=== PATIENT | male | born 1950 | race Caucasian/White ===

== ENCOUNTER 2024-09-12 05:19 | Inpatient (IN) | payer MEDICARE, BC, SELFPAY ==
[2024-09-12] VITALS (8 sets, daily range): BP systolic 115–161; BP diastolic 69–89; PULSE 63–86; RESP 13–18; TEMP 36.2–36.8; O2SAT 92–100; BMI 18.9; BMI 19.4
--- NOTE | 2024-09-12 06:38 | MHC.EDTECH ---
Male Pure wick placed on the patient 0630
[2024-09-12 06:55] LABS: MANUAL DIFF FLAG NO
[2024-09-12 07:06] LABS: Hematocrit 40.1 % (42.0-52.0); Hemoglobin 14.7 g/dl (14.0-18.0); Imm Gran Abs Auto 0.05 X10*3/uL (0.00-0.03); Imm Gran Pct Auto 0.5 % (0.0-0.4); Lymphocytes Absolute Auto 2.1 X10*3/uL (1.2-4.9); Mean Corpuscular HGB Conc 36.7 g/dl (31.0-36.0); Mean Corpuscular Hemoglobin 32.7 pg (27.0-33.0); Mean Corpuscular Volume 89.3 fL (80.0-98.0); NRBC Abs Auto 0.000 X10*3/uL (0.0-0.012); NRBC Pct Auto 0.0 /100WBC (0.0-0.2); Platelet Count 223 X10*3/uL (160-400); Red Blood Count 4.49 X10*6/uL (4.60-5.80); White Blood Count 11.0 X10*3/uL (4.8-10.8)
[2024-09-12 07:17] LABS: Alanine Aminotransferase 8 U/L (0-40); Albumin Level 3.9 g/dL (3.5-5.0); Alkaline Phosphatase 107 U/L (39-117); Anion Gap 15 (12-20); Aspartate Amino Transferase 20 U/L (5-37); Blood Urea Nitrogen 14 mg/dL (9-16); Calcium 9.1 mg/dL (8.4-10.2); Carbon Dioxide 24 mmol/L (22-29); Chloride 88 mmol/L (96-108); Creatinine Clr Calc Pharmacy 73.7; Estimated Glomerular Filt Rate > 60; Potassium 4.1 mmol/L (3.3-5.1); Sodium 123 mmol/L (135-145); Total Protein 7.7 g/dL (6.5-8.0)
--- NOTE | 2024-09-12 07:46 | ED_ITS ---
HPI - General Adult General Chief complaint: General Medical Stated complaint: Alcohol detox Time Seen by Provider: 09/12/24 07:15 Source: patient Mode of arrival: ambulatory Limitations: no limitations History of Present Illness ED Provider: DR. Hinton HPI narrative: a 74-year-old male a history of alcoholism patient drinks every day for the last month at least, with decrease other p.o. intake, last drink was 3-4 hours ago patient feeling very anxious, tremors, seeing dots, nausea, and vomiting. Patient had history of hospitalization for DTs alcohol withdrawal, patient do not feel well overall. Declined any recent fall or head injury. Related Data Allergies Allergy/AdvReac Type Severity Reaction Status Date / Time No Known Allergies Allergy Verified 09/12/24 05:34 Review of Systems 2 Review of Systems: All other systems are reviewed and are negative Constitutional: Reports as per HPI and Reports no additional constitutional complaints Eyes: Reports as per HPI and Reports no additional eye complaints Reports system reviewed and no additional complaints, except as documented Cardiovascular: Reports as per HPI and Reports no additional cardiovascular complaints Respiratory: Reports as per HPI and Reports no additional respiratory complaints Gastrointestinal: Reports as per HPI and Reports no additional gastrointestinal complaints Genitourinary: Reports no additional female genitourinary complaints Musculoskeletal: Reports no additional musculoskeletal complaints Skin/Breast: Reports system reviewed and no additional complaints, except as docu Psychiatric: Reports no additional psychiatric complaints Endocrine: Reports no additional endocrine complaints Hematologic/Lymphatic: Reports no additional hematologic/lymphatic complaints Allergic/Immunologic: Reports no additional allergic/immunologic complaints Reports system reviewed and no additional complaints, except as documented and Reports Abnormal speech present [facility] Social History Social History Alcohol intake: current Alcohol intake frequency: 3 or more drinks per day Alcohol type: beer Smoked in Last 30 Days: No Substance Use Type: Marijuana Advance Directives: No Advance Directives Information Provided: Yes Physical Exam ED Vital Signs: Vital Signs - 24 hr 09/12/24 05:33 09/12/24 07:40 09/12/24 08:30 Temperature 97.8 F 98.1 F Pulse Rate 86 82 80 Respiratory Rate 16 17 18 Blood Pressure 115/82 161/89 H 154/86 H Pulse Oximetry 97 99 96 Oxygen Delivery Method Room Air Room Air Room Air BMI result Body Mass Index 18.9 Vital signs have been reviewed and appear to be correct. Blood pressure elevated. Heart rate normal. Respiratory rate normal. Temperature normal. Oxygen saturation normal. Appearance: Alert. Oriented X3. No acute distress. Head: Normal external exam. Normocephalic. Atraumatic. No Bragg signs noted. No raccoon eyes noted Eyes: PERRLA. EOMI. Conjunctiva and sclera normal. Eyelids normal. ENT: TM's Normal. Pharynx normal. Uvula midline. Moist mucous membranes. No trismus noted. No drooling noted. No muffled voice noted. Neck: Normal inspection. Neck supple. FROM. No adenopathy. Thyroid Normal. No meningeal signs. No neck mass noted. CVS: Normal heart rate and rhythm. Heart sound normal. No murmurs noted. Pulses normal throughout. Respiratory: No respiratory distress. Painless inspiration. Breath sounds normal. No wheezes/rales/rhonchi noted. Chest nontender. No accessory muscle usage noted or decreased air movement noted. Abdomen: Soft and nontender. Bowel sounds normal in all 4 quadrants. No distention noted. No organomegaly noted. No visible injury noted. Back: No CVA tenderness. Full range of motion noted. Skin: Skin warm and dry. Normal skin color. Normal skin turgor. No rashes/lesions/lacerations noted. Extremities: No lower extremity edema. Extremities exhibit normal range of motion. Extremities nontender. Neuro: Oriented X 3 , bilateral involuntary fine tremors, +tongue fasciculations Cranial nerve exam: II-XII are grossly intact No motor deficit. No sensory deficit. Reflexes normal. Course Reevaluation(s) Reevaluation #1: 1. chronic alcoholism, last drink was yesterday, history of DTs and multiple hospitalization for alcohol withdrawal, CIWA score currently is 16, patient was started on phenobarb. 2. Hyponatremia 123 start on normal saline. Time: 10:16 Medications Administered Discontinued Medications Generic Name Dose Route Start Last Admin Trade Name Freq PRN Reason Stop Dose Admin Diazepam 5 mg 09/12/24 07:42 09/12/24 08:22 Diazepam 10 Mg/2 Ml Cartridge IVPUSH 09/12/24 07:43 5 mg STAT STA Administration Famotidine 20 mg 09/12/24 07:42 09/12/24 08:20 Famotidine/Pf 20 Mg/2 Ml Vial IVPUSH 09/12/24 07:43 20 mg ONCE ONE Administration Lactated Ringer's 1,000 mls @ 999 mls/hr 09/12/24 07:45 09/12/24 09:40 Lr IV 09/12/24 08:45 Infused .Q1H1M EDMOND Infusion Ondansetron HCl 4 mg 09/12/24 07:42 09/12/24 08:20 Ondansetron Hcl 4 Mg/2 Ml Vial IVPUSH 09/12/24 07:43 4 mg ONCE ONE Administration Phenobarbital Sodium 312 mg 09/12/24 08:00 09/12/24 08:30 Phenobarbital Sodium 130 Mg/Ml Im Once IM 09/12/24 08:01 312 mg ONCE ONE Administration Protocol Medical Decision Making Differential Diagnosis Differential Diagnoses: The differential diagnosis associated with the presentation includes ( Alcohol withdrawal, DTs, electrolyte derangement, severe anemia.) Admission/Observation Consideration of admission/observation: Escalation of care including admission/observation considered Consult Healthcare Provider Management of the patient was discussed with: Hospitalist ( Dr. Kelly) Lab Data MDM Lab Attestation statement: I reviewed the patient's lab results. 09/12/24 06:47 09/12/24 06:47 Labs: Lab Results 09/12/24 Range/Units 06:47 WBC 11.0 H (4.8-10.8) X10*3/uL RBC 4.49 L (4.60-5.80) X10*6/uL Hgb 14.7 (14.0-18.0) g/dl Hct 40.1 L (42.0-52.0) % MCV 89.3 (80.0-98.0) fL MCH 32.7 (27.0-33.0) pg MCHC 36.7 H (31.0-36.0) g/dl RDW 13.4 (11.0-16.0) % Plt Count 223 (160-400) X10*3/uL MPV 8.9 L (9.4-12.4) fL Immature Gran % (Auto) 0.5 H (0.0-0.4) % Neut % (Auto) 73.2 H (45-73) % Lymph % (Auto) 18.8 L (20-40) % [place] % (Auto) 7.0 (2-11) % Eos % (Auto) 0.3 (0-4) % Baso % (Auto) 0.2 (0-2) % Lymph # (Auto) 2.1 (1.2-4.9) X10*3/uL [place] # (Auto) 0.8 (0.1-1.2) X10*3/uL Eos # (Auto) 0.0 (0.0-0.4) X10*3/uL Baso # (Auto) 0.0 (0.0-0.2) X10*3/uL Abs Immat Gran (auto) 0.05 H (0.00-0.03) X10*3/uL Absolute Neuts (auto) 8.0 (2.0-8.3) x10*3/uL Absolute Nucleated RBC 0.000 (0.0-0.012) X10*3/uL Nucleated RBC % (auto) 0.0 (0.0-0.2) /100WBC Sodium 123 L (135-145) mmol/L Potassium 4.1 (3.3-5.1) mmol/L Chloride 88 L (96-108) mmol/L Carbon Dioxide 24 (22-29) mmol/L Anion Gap 15 (12-20) BUN 14 (9-16) mg/dL Creatinine 0.82 (0.5-1.4) mg/dL Estim Creat Clear Calc 73.7 Estimated GFR > 60 Random Glucose 148 H (60-115) mg/dL Calcium 9.1 (8.4-10.2) mg/dL Magnesium 2.0 (1.6-2.6) mg/dL Total Bilirubin 0.8 (0.0-1.0) mg/dL AST 20 (5-37) U/L ALT 8 (0-40) U/L Alkaline Phosphatase 107 (39-117) U/L Total Protein 7.7 (6.5-8.0) g/dL Albumin 3.9 (3.5-5.0) g/dL Ethyl Alcohol 11 mg/dL Chronic Conditions Patient?s care impacted by: Other ( chronic alcoholism) Critical Care Time Critical Care Time Critical Care Time: Yes Total Critical Care Time: 60 Attestation: The patient was critically ill with a high probability of imminent or life- threatening deterioration. I spent greater than 30 minutes of discontinuous time evaluating the patient, delivering critical care at the bedside, discussing evaluating data with consultants. Critical care time does not include time spent performing separately billable procedures or teaching. Time spent performing critical care was 60 minutes. Discharge Plan Discharge Clinical Impression: Alcohol withdrawal, Acute hyponatremia Patient Disposition: Admitted As Inpatient Print Language: Turkish
[2024-09-12] MEDS: Lactated Ringers 1,000 ML 999 ML IV (08:20)
[2024-09-12] MEDS: diazePAM 10 MG/2 ML CARTRIDGE 5 MG IVPUSH (08:22)
[2024-09-12 08:26] LABS: Magnesium 2.0 mg/dL (1.6-2.6)
[2024-09-12] MEDS: PHENobarbitaL sodium 130 MG/ML IM ONCE 312 MG IM (08:30)
--- NOTE | 2024-09-12 10:48 | P.HPHOSP_ITS ---
History of Present Illness Date of Service: 09/12/24 Attending physician on admission: Jessica Kelly Chief Complaint: Alcohol Withdrawal Pt is a 74-year-old male with a PMH significant for?HTN, HLD, insulin-dependent type 2 diabetes, ascending aortic aneurysm, Lyme arthritis, alcohol use disorder with hx of alcohol withdrawal with multiple hospitalizations, active smoker with 65 pack year hx who presents to the ED seeking alcohol detox. Pt reports due to life stressors has been drinking alcohol for the past 3 months after a period. Initially started with just a few beers a day, but recently has been bingeing around 18 beers daily. The past 3 4 days has been trying to cut back, though been experiencing symptoms of withdrawal including increased agitation, shakiness, and muscle spasms. Reports long hx of heavy alcohol use and has been hospitalized for alcohol withdrawal in the past in both [place] and in [facility] among other places. Pt used to drink hard alcohol, though lately switched to beer due to alcoholic gastritis. Currently denies headache, nausea, vomiting, or increased anxiety. No reported auditory or visual hallucinations, no tactile disturbances. Reports GERD like symptoms, though no significant abdominal pain. Denies chest pain/pressure, palpitations. No SOB or difficulty breathing. Pt is an active smoker of a pack daily. In the ED pt was hypertensive up to 161/89, vitals otherwise stable and WNL. Labs were significant for mild leukocytosis of 11.0, sodium 123, chloride 88. Ethyl alcohol 11. H&H stable. Renal function WNL. Mag WNL. Hepatic function WNL. Pt was treated in the ED with IVF, Protonix, ondansetron, diazepam 5 mg IV, and started on phenobarb protocol. Pt is admitted to the hospital for treatment and further evaluation of acute alcohol withdrawal with hyponatremia. Review of Systems 2 Review of Systems: Negative except for that which is stated in the [facility] Medical History (Updated 09/12/24 @ 11:41 by ALTAGRACIA Goetz) 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 Alcohol use disorder Nicotine dependence Ascending aortic aneurysm HLD (hyperlipidemia) HTN (hypertension) Social History Alcohol intake: current Alcohol intake frequency: 3 or more drinks per day Alcohol type: beer Smoked in Last 30 Days: No Substance Use Type: Marijuana Advance Directives: No Advance Directives Information Provided: Yes Meds Allergies Allergy/AdvReac Type Severity Reaction Status Date / Time No Known Allergies Allergy Verified 09/12/24 05:34 Active Medications: Current Medications Acetaminophen (Acetaminophen 325 Mg Tablet) 650 mg PO Q6H PRN PRN Reason: Pain, Mild 1-3,fever,headache Calcium Carbonate (Calcium Carbonate 750 Mg Tab.Chew) 750 mg PO Q4H PRN PRN Reason: Heartburn Sodium Chloride (Ns) 1,000 mls @ 999 mls/hr IV .Q1H1M ONE Stop: 09/12/24 11:22 Magnesium Hydroxide (Milk Of Magnesia 30 Ml Oral.Susp) 30 ml PO DAILY PRN PRN Reason: Constipation Melatonin (Melatonin 3 Mg Tablet) 6 mg PO BEDTIME PRN PRN Reason: Insomnia Pharmacy Consult (Consult Rx Etoh Phenob Im/Po) 1 each MISCELLANE ONCE PRN; Protocol PRN Reason: Consult order Phenobarbital (Phenobarbital 15 Mg Tablet) 45 mg PO BID [facility]; Protocol Stop: 09/14/24 09:01 Phenobarbital (Phenobarbital 30 Mg Tablet) 30 mg PO BID [facility]; Protocol Stop: 09/16/24 09:01 Phenobarbital (Phenobarbital 30 Mg Tablet) 30 mg PO DAILY [facility]; Protocol Stop: 09/18/24 09:01 Phenobarbital Sodium (Phenobarbital Sodium 130 Mg/Ml Vial Im Q3hx2) 234 mg IM Q3H [facility]; Protocol Stop: 09/12/24 14:01 Sodium Chloride (0.9 % Sodium Chloride Flush 3 Ml Syringe) 3 ml IVFLUSH QSHIFT [facility] Physical Exam 2 Vital Signs and Narrative: Vital Signs: Last Vital Signs Temp 98.1 F 09/12/24 07:40 Pulse 80 09/12/24 08:30 Resp 18 09/12/24 08:30 BP 154/86 H 09/12/24 08:30 Pulse Ox 96 09/12/24 08:30 O2 Del Method Room Air 09/12/24 08:30 BMI result Body Mass Index 18.9 General: AOx3, slightly disheveled, no acute distress Resp: CTA bilaterally, diminished CVS: S1, S2, RRR GI: +BS, NT, no distention Skin: Warm, dry Neuro: Cranial nerves II-XII grossly intact bilaterally. Motor grossly intact bilaterally. No upper extremity tremors noted Extremities: No edema Psych: Appropriate affect Results Labs 09/12/24 06:47 09/12/24 06:47 Labs: Laboratory Results - last 24 hr 09/12/24 06:47 MCV 89.3 MCH 32.7 MCHC 36.7 H RDW 13.4 Plt Count 223 MPV 8.9 L Immature Gran % (Auto) 0.5 H Neut % (Auto) 73.2 H Lymph % (Auto) 18.8 L [place] % (Auto) 7.0 Eos % (Auto) 0.3 Baso % (Auto) 0.2 Lymph # (Auto) 2.1 [place] # (Auto) 0.8 Eos # (Auto) 0.0 Baso # (Auto) 0.0 Abs Immat Gran (auto) 0.05 H Absolute Neuts (auto) 8.0 Absolute Nucleated RBC 0.000 Nucleated RBC % (auto) 0.0 Anion Gap 15 Estim Creat Clear Calc 73.7 Estimated GFR > 60 Random Glucose 148 H Calcium 9.1 Magnesium 2.0 Total Bilirubin 0.8 AST 20 ALT 8 Alkaline Phosphatase 107 Total Protein 7.7 Albumin 3.9 Ethyl Alcohol 11 Assessment and Plan (1) Alcohol withdrawal: Status: Acute (2) Acute hyponatremia: Status: Acute Plan Pt is a 74-year-old male with a PMH significant for?HTN, HLD, insulin-dependent type 2 diabetes, ascending aortic aneurysm, Lyme arthritis, alcohol use disorder with hx of alcohol withdrawal with multiple hospitalizations, active smoker with 65 pack year hx who presents to the ED seeking alcohol detox. Pt is admitted to the hospital for treatment and further evaluation of acute alcohol withdrawal with hyponatremia. Acute alcohol withdrawal Pt drinking 18 beers daily, reports tremors and agitation when tries to cut back; hx of withdrawal and DT in the past Continue Phenobarb protocol Daily multivitamin, folic acid, thiamine, famotidine Follow lytes, Mag, BMP CIWA scale Addiction medicine consult Monitor on telemetry Hyponatremia Sodium 123 at time of presentation Will recheck sodium in 4h Fluid restriction 1.5L Check urine sodium, osmolality, and electrolytes serum osmolality; morning coritsol Follow sodium Monitor on telemetry HTN Reports BP has been normalized since his divorce No longer on home meds Monitor BP, consider adding antihypertensive if necessary HLD Med rec still pending Insulin-dependent type 2 diabetes Sliding-scale insulin, diabetic diet Med rec still pending Check A1c; unclear how compliant pt is with home meds Ascending aortic aneurysm Pt reports is small and stable Follow up outpatient Nicotine dependence Nicotine patch Smoking cessation counseled Full Code Attending:?Dr. Kelly DVT Prophylaxis: Lovenox Pt will require a hospitalization of at least two nights for treatment of?acute alcohol withdrawal requiring phenobarb protocol, as well hyponatremia requiring close monitoring of labs and additional workup. Quality Stroke Does the patient have a stroke diagnosis?: No VTE Prior VTE?: No VTE Risk Level:: Medical - moderate - high VTE Device Contraindication: Treatment Not Indicated VTE Drug Contraindication: N/A - Med Ordered
[2024-09-12] MEDS: PHENobarbitaL sodium 130 MG/ML VIAL IM Q3Hx2 234 MG IM ×2 (11:38→13:42)
[2024-09-12] MEDS: Nicotine 21 MG PATCH.TD24 TRANSDERMA (11:38)
[2024-09-12 11:55] LABS: Anion Gap 15 (12-20); Blood Urea Nitrogen 16 mg/dL (9-16); Calcium 9.2 mg/dL (8.4-10.2); Carbon Dioxide 26 mmol/L (22-29); Chloride 93 mmol/L (96-108); Creatinine Clr Calc Pharmacy 74.6; Estimated Glomerular Filt Rate > 60; Potassium 4.7 mmol/L (3.3-5.1); Sodium 129 mmol/L (135-145)
--- NOTE | 2024-09-12 12:14 | PHA.MEDREC ---
Addendum entered by Jannette Cai RPh 09/12/24 12:23: Reviewed by [facility] Original Note: Pharmacy Consult ? Medication Reconciliation Pharmacy partially completed med rec. Pt stated he recently just moved here from [facility] and has not been able to transfer his medications from his pharmacy in [place] to here in [place]. Pt has on hand an Insulin Glargine YFGN; confirming he injects 10 units daily of that and Insulin Lispro injecting per a sliding scale TIDAC. Pt confirmed he takes Omeprazole daily but didn't know the dose and a statin for his high cholesterol but couldn't remember the name or the dose of it at this time. When I asked pt where he was filling he was not sure at this time and stated he has no one to call and confirm them either. I confirmed what I could and will have afternoon team try to figure out pt pharmacy but it not will have Am team follow up.
[2024-09-12 12:15] LABS: Osmolality, Serum 283 mosm/kg (281-305)
[2024-09-12 12:44] LABS: Thyroid Stimulating Hormone 1.44 uIU/mL (0.32-4.0)
[2024-09-12 14:11] LABS: Appearance Urine Clear; Glucose Urine UA Negative (Negative); PH 6.5 (5.0-9.0); Specific Gravity - Urine <= 1.005 (1.005-1.025); UMIC TRIGGER UACC YES
[2024-09-12 14:15] LABS: Glucose, Whole Blood 149 mg/dL (60-115)
[2024-09-12 14:23] LABS: UACC Culture Trigger YES
[2024-09-12 17:19] LABS: Anion Gap 13 (12-20); Blood Urea Nitrogen 16 mg/dL (9-16); Calcium 8.5 mg/dL (8.4-10.2); Carbon Dioxide 24 mmol/L (22-29); Chloride 98 mmol/L (96-108); Creatinine Clr Calc Pharmacy 67.9; Estimated Glomerular Filt Rate > 60; Potassium 4.1 mmol/L (3.3-5.1); Sodium 131 mmol/L (135-145)
[2024-09-12 18:23] LABS: Glucose, Whole Blood 295 mg/dL (60-115)
[2024-09-12 20:28] LABS: Glucose, Whole Blood 218 mg/dL (60-115)
[2024-09-12] MEDS: diazePAM 10 MG/2 ML CARTRIDGE 7.5 MG IVPUSH (21:11)
[2024-09-13] VITALS (7 sets, daily range): BP systolic 133–158; BP diastolic 73–93; PULSE 51–85; RESP 16–20; TEMP 36.2–37.6; O2SAT 95–100
[2024-09-13 07:18] LABS: Anion Gap 12 (12-20); Blood Urea Nitrogen 23 mg/dL (9-16); Calcium 8.4 mg/dL (8.4-10.2); Carbon Dioxide 27 mmol/L (22-29); Chloride 98 mmol/L (96-108); Creatinine Clr Calc Pharmacy 68.9; Estimated Glomerular Filt Rate > 60; Magnesium 2.2 mg/dL (1.6-2.6); Potassium 4.1 mmol/L (3.3-5.1); Sodium 133 mmol/L (135-145)
[2024-09-13 07:43] LABS: Glucose, Whole Blood 137 mg/dL (60-115)
[2024-09-13] MEDS: Insulin Glargine,Hum.rec.anlog 100 UNIT/ML 10 ML VIAL 8 UNIT SUBCUT (07:50)
[2024-09-13] MEDS: Nicotine 21 MG PATCH.TD24 TRANSDERMA (07:51)
[2024-09-13] MEDS: 0.9 % Sodium Chloride Flush 3 ML SYRINGE IVFLUSH ×2 (07:52→19:49)
--- NOTE | 2024-09-13 09:30 | PC.NURSE ---
When entering the patients room this morning, pt instantly requesting medications on demand, pt stating the Doctor told him he an have medications whenever he wants. While scanning his medications pt began to get up from the chair, throw himself on the bed where he began to thrash out, kick his legs and state im having a seizure, i need valium . This RN assessed this situation to evaluate the seizure and the patient continued to have a full conversation with me about how I'm taking too long to give him the medication. Pt then continue to complain about the care here and how we are not managing his care appropriately. Dr. Kelly at bedside to address these concerns and issues however, pt was still not happy and threatened Dr. Kelly that he knew marshal art as he made a fist. Attempted to reassure patient and redirect but pt was still demanding/insisting on specific IV medication despite these medications given already. Charge nurse called to bedside as well to help with this situation and pt was still aggressive, verbally abusive and threatening to chacorta everyone due to malpractice . Security called at bedside to help with this situation, pt then demanding the names of everyone who took care of him so he can take everyone's licenses. Pt received another dose of medication with security at bedside. After this, the patient appeared less agitated. Once patient was less agitated he did voice that these episodes might be related to anxiety. Safety and fall precautions maintained. Call hurtado within reach. Camera in room.
[2024-09-13] MEDS: diazePAM 10 MG/2 ML CARTRIDGE 2.5 MG IVPUSH (09:59)
[2024-09-13] MEDS: diazePAM 10 MG/2 ML CARTRIDGE 5 MG IVPUSH ×2 (11:04→22:20)
--- NOTE | 2024-09-13 11:07 | MHC.CM.PN ---
CM attempted to meet with Patient at bedside but he appeared agitated and not wanting to address CM's questions. CM verbally addressed IMM with Patient and left original at bedside (copy on the chart as well). Patient appears to be homeless with no PCP and no HCP. Per MD in [place]OUN[place], Patient will benefit from both Psych and Recovery Team Consults to assist with disposition. CM has initiated and will follow for dc planning.
[2024-09-13 11:54] LABS: Glucose, Whole Blood 230 mg/dL (60-115)
--- NOTE | 2024-09-13 12:12 | PM.PSYCN ---
History of Present Illness Date of Service: 09/13/2024 Chief Complaint: Alcohol withdrawal Requesting physician: Jessica Kelly Discussed with referring provider: Yes Sources of Information: patient interviewed, chart reviewed and crisis/core team assessment reviewed HPI Narrative: Mr. Knight is a 74 year-old male with hx of alcohol use disorder, who self presented to [facility] requesting alcohol detox. He reported hx of alcohol withdrawal seizures. BAL 11. He reported binge drinking 18 beers a day. Psychiatry initially asked to meet with pt to address anxiety, but later pt became more agitated, demanding higher doses of phenobarb, threatening staff if not given higher doses of phenobarb, reporting he was having a seizure. Pt seen in the ED. He reports I'm having a hard time with the incompetence of this hospital, they don't know how to treat alcohol withdrawal. He reports his dose of phenobarb is too low. He presents as calm, no overt signs of severe alcohol withdrawal. He reports he is a [place] [employer] Vet and has used alcohol to self medicate. He reports he started using alcohol at the age of 9, given by his father who was an alcoholic. He reports he grew up seeing both parents using alcohol at a time when it was socially accepted. He reports a year ago his of 49 eyars him. He has a strained relationship with adult children. He reports alcohol use has greatly affected his relationship with family. He reports he is currently staying at [facility] but bought a house and closing is in October. When asked about depression, pt reports he does not feel depressed, that for the most part he feels upbeat. He reports in the past he has been on antidepressant (only he can remember is cymbalta) and none of them really helped. He does not discuss more in depth medications for depression as he reports he is not depressed. He reports his anxiety is concerning when he is not using alcohol. He reports today he was upset he was not getting more medications. He does report he used to be on gabapentin and it was helpful. He agrees to restart. He denies nightmares related to combat. He does report being at times explosive but at the same time he states all my problems are due to what others have done wrong. He stops for a minute and says I know that sounds wrong, but it is true. He goes on talking about his and how unfair she was for leaving him, even thought at times he acknowledges his drinking has affected all his relationships. He reports he has been on MAT including naltrexon, campral and disulfiran. He reports not helpful. He reports he prefers non traditional interventions like ayaguasca (used in [place] and some evidence of efficacy in alcohol use). He denies SI/HI. he denies hx of VH/AH. He denies hx of hypomania or jacki. He denies past psychiatric admission. he also denies hx of suicide attempts. Past Psychiatric History: Inpt: none OP: none Past medication trials- cymbalta, clonidine. 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 [place] [employer]et. 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 He reports having two adult children with whom he has a strained relationship also due to his alcohol use. He reports he currently is staying in at a motel until he buys a house. Substance History: Alcohol- first drink at age 9. He drink heavily during teens years. He reports binge drinking, usually He reports he has been on several detox, one sober house treatment. Trauma History: combat PTSD- [place] War Vet Diagnostics Vital Signs (24Hr): Vital Signs - 24 hr 09/12/24 14:04 09/12/24 18:32 09/12/24 19:40 Temperature 97.3 F 97.8 F Pulse Rate 64 71 71 Respiratory Rate 13 13 16 Blood Pressure 148/80 H 144/75 H 134/72 Pulse Oximetry 97 98 92 Oxygen Delivery Method Room Air Room Air Room Air 09/12/24 23:49 09/13/24 03:52 09/13/24 07:23 Temperature 97.1 F 97.6 F 97.4 F Pulse Rate 63 51 59 Respiratory Rate 18 18 16 Blood Pressure 122/69 145/74 H 158/77 H Pulse Oximetry 99 99 100 Oxygen Delivery Method Room Air Room Air Room Air 09/13/24 11:44 Temperature 97.9 F Pulse Rate 74 Respiratory Rate Blood Pressure 149/92 H Pulse Oximetry 98 Oxygen Delivery Method Room Air BMI result Body Mass Index 19.4 Labs 09/12/24 06:47 09/13/24 06:54 Labs: Laboratory Results - last 48 hr 09/12/24 09/12/24 09/12/24 06:47 11:14 11:17 WBC 11.0 H RBC 4.49 L Hgb 14.7 Hct 40.1 L MCV 89.3 MCH 32.7 MCHC 36.7 H RDW 13.4 Plt Count 223 MPV 8.9 L Immature Gran % (Auto) 0.5 H Neut % (Auto) 73.2 H Lymph % (Auto) 18.8 L [place] % (Auto) 7.0 Eos % (Auto) 0.3 Baso % (Auto) 0.2 Lymph # (Auto) 2.1 [place] # (Auto) 0.8 Eos # (Auto) 0.0 Baso # (Auto) 0.0 Abs Immat Gran (auto) 0.05 H Absolute Neuts (auto) 8.0 Absolute Nucleated RBC 0.000 Nucleated RBC % (auto) 0.0 Hold Purple Top Sodium 123 L 129 L Potassium 4.1 4.7 Chloride 88 L 93 L Carbon Dioxide 24 26 Anion Gap 15 15 BUN 14 16 Creatinine 0.82 0.81 Estim Creat Clear Calc 73.7 74.6 Estimated GFR > 60 > 60 POC Glucose Random Glucose 148 H 157 H Osmolality 283 Calcium 9.1 9.2 Magnesium 2.0 Total Bilirubin 0.8 AST 20 ALT 8 Alkaline Phosphatase 107 Total Protein 7.7 Albumin 3.9 TSH 1.44 Random Cortisol Urine Color Urine Appearance Urine pH Ur Specific [place] Urine Protein Urine Glucose (UA) Urine Ketones Urine Blood Urine Nitrite Ur Leukocyte Esterase Urine RBC Urine WBC Ur Squamous Epith Cells Urine Bacteria Hyaline Casts Urine Osmolality Ur Random Sodium Ur Random Potassium Ur Random Chloride Ethyl Alcohol 11 09/12/24 09/12/24 09/12/24 14:00 14:11 16:48 WBC RBC Hgb Hct MCV MCH MCHC RDW Plt Count MPV Immature Gran % (Auto) Neut % (Auto) Lymph % (Auto) Orange % (Auto) Eos % (Auto) Baso % (Auto) Lymph # (Auto) [place] # (Auto) Eos # (Auto) Baso # (Auto) Abs Immat Gran (auto) Absolute Neuts (auto) Absolute Nucleated RBC Nucleated RBC % (auto) Hold Purple Top Sodium 131 L Potassium 4.1 Chloride 98 Carbon Dioxide 24 Anion Gap 13 BUN 16 Creatinine 0.89 Estim Creat Clear Calc 67.9 Estimated GFR > 60 POC Glucose 149 H Random Glucose 200 H Osmolality Calcium 8.5 D Magnesium Total Bilirubin AST ALT Alkaline Phosphatase Total Protein Albumin TSH Random Cortisol Urine Color Yellow Urine Appearance Clear Urine pH 6.5 Ur Specific [place] <= 1.005 Urine Protein Negative Urine Glucose (UA) Negative Urine Ketones Negative Urine Blood Negative Urine Nitrite Positive H Ur Leukocyte Esterase Trace H Urine RBC 0-2 Urine WBC 0-5 Ur Squamous Epith Cells 0-2 Urine Bacteria 3+ Hyaline Casts 0-2 Urine Osmolality 97 L Ur Random Sodium < 20.0 Ur Random Potassium 13.0 Ur Random Chloride < 20.0 Ethyl Alcohol 09/12/24 09/12/24 09/13/24 18:19 19:49 06:54 WBC RBC Hgb Hct MCV MCH MCHC RDW Plt Count MPV Immature Gran % (Auto) Neut % (Auto) Lymph % (Auto) [place] % (Auto) Eos % (Auto) Baso % (Auto) Lymph # (Auto) [place] # (Auto) Eos # (Auto) Baso # (Auto) Abs Immat Gran (auto) Absolute Neuts (auto) Absolute Nucleated RBC Nucleated RBC % (auto) Hold Purple Top SEE NOTE Sodium 133 L Potassium 4.1 Chloride 98 Carbon Dioxide 27 Anion Gap 12 BUN 23 H Creatinine 0.90 Estim Creat Clear Calc 68.9 Estimated GFR > 60 POC Glucose 295 H 218 H Random Glucose 136 H Osmolality Calcium 8.4 Magnesium 2.2 Total Bilirubin AST ALT Alkaline Phosphatase Total Protein Albumin TSH Random Cortisol 17.3 Urine Color Urine Appearance Urine pH Ur Specific [place] Urine Protein Urine Glucose (UA) Urine Ketones Urine Blood Urine Nitrite Ur Leukocyte Esterase Urine RBC Urine WBC Ur Squamous Epith Cells Urine Bacteria Hyaline Casts Urine Osmolality Ur Random Sodium Ur Random Potassium Ur Random Chloride Ethyl Alcohol 09/13/24 09/13/24 07:39 11:46 WBC RBC Hgb Hct MCV MCH MCHC RDW Plt Count MPV Immature Gran % (Auto) Neut % (Auto) Lymph % (Auto) Orange % (Auto) Eos % (Auto) Baso % (Auto) Lymph # (Auto) [place] # (Auto) Eos # (Auto) Baso # (Auto) Abs Immat Gran (auto) Absolute Neuts (auto) Absolute Nucleated RBC Nucleated RBC % (auto) Hold Purple Top Sodium Potassium Chloride Carbon Dioxide Anion Gap BUN Creatinine Estim Creat Clear Calc Estimated GFR POC Glucose 137 H 230 H Random Glucose Osmolality Calcium Magnesium Total Bilirubin AST ALT Alkaline Phosphatase Total Protein Albumin TSH Random Cortisol Urine Color Urine Appearance Urine pH Ur Specific [place] Urine Protein Urine Glucose (UA) Urine Ketones Urine Blood Urine Nitrite Ur Leukocyte Esterase Urine RBC Urine WBC Ur Squamous Epith Cells Urine Bacteria Hyaline Casts Urine Osmolality Ur Random Sodium Ur Random Potassium Ur Random Chloride Ethyl Alcohol Mental Status Exam Mental Status Exam Narrative: Appearance: wearing hospital gown, edentulous, nails unkempt and dirt under them, in NAD Behavior: cooperative Psychomotor: pill rolling tremors, more pronounced on right hand. Speech: clear, normal rate/rhythm/volume, talkative, but not pressured, spontaneous TP: tangential, at times circumstantial TC: wanting help with self medication, Mood: Affect: SI: denies HI: denies VH/AH: none Delusions: none Insight/judgment: very poor x 2. Memory/cog: alert, oriented x 3. no formal assessment of memory/cog. Medications Medications Current Medications Acetaminophen (Acetaminophen 325 Mg Tablet) 650 mg PO Q6H PRN PRN Reason: Pain, Mild 1-3,fever,headache Last Admin: 09/13/24 07:54 Dose: 650 mg Calcium Carbonate (Calcium Carbonate 750 Mg Tab.Chew) 750 mg PO Q4H PRN PRN Reason: Heartburn Dextrose (Dextrose 50 % 25 Gm/50 Ml Syringe) 25 gm IVPUSH Q15M PRN; Protocol PRN Reason: per Hypoglycemia Standing Ord. Enoxaparin Sodium (Enoxaparin Sodium 40 Mg/0.4 Ml Syringe) 40 mg SUBCUT Q24H [facility] Last Admin: 09/13/24 11:57 Dose: 40 mg Glucose (Glucose Gel 15 Gm Gel..Gram.) 15 gm PO Q15M PRN; Protocol PRN Reason: per Hypoglycemia Standing Ord. Haloperidol Lactate (Haloperidol Lactate 5 Mg/Ml Vial) 1 mg IM Q4H PRN PRN Reason: agitation Dextrose (D5w) 1,000 mls @ 75 mls/hr IVCONT .[id number] [facility] Last Admin: 09/13/24 07:52 Dose: 75 mls/hr Insulin Glargine (Insulin Glargine,Hum.Rec.Anlog 100 Unit/Ml 10 Ml Vial) 8 unit SUBCUT DAILY [facility] Last Admin: 09/13/24 07:50 Dose: 8 unit Insulin Human Lispro (Insulin Lispro 100 Unit/Ml 3 Ml Vial) 0 unit SUBCUT QIDACHS [facility]; Protocol Last Admin: 09/13/24 11:57 Dose: 4 unit Magnesium Hydroxide (Milk Of Magnesia 30 Ml Oral.Susp) 30 ml PO DAILY PRN PRN Reason: Constipation Melatonin (Melatonin 3 Mg Tablet) 6 mg PO BEDTIME PRN PRN Reason: Insomnia Last Admin: 09/12/24 20:17 Dose: 6 mg Nicotine (Nicotine 21 Mg Patch.Td24) 21 mg TRANSDERMA DAILY [facility] Last Admin: 09/13/24 07:51 Dose: 21 mg Pantoprazole Sodium (Pantoprazole Sodium 40 Mg/10 Ml Vial) 40 mg IVPUSH DAILY@629 [facility] Last Admin: 09/13/24 05:31 Dose: 40 mg Pharmacy Consult (Consult Rx Etoh Phenob Im/Po) 1 each MISCELLANE ONCE PRN; Protocol PRN Reason: Consult order Phenobarbital (Phenobarbital 15 Mg Tablet) 45 mg PO BID [facility]; Protocol Stop: 09/14/24 09:01 Last Admin: 09/13/24 07:51 Dose: 45 mg Phenobarbital (Phenobarbital 30 Mg Tablet) 30 mg PO BID [facility]; Protocol Stop: 09/16/24 09:01 Phenobarbital (Phenobarbital 30 Mg Tablet) 30 mg PO DAILY [facility]; Protocol Stop: 09/18/24 09:01 Sodium Chloride (0.9 % Sodium Chloride Flush 3 Ml Syringe) 3 ml IVFLUSH QSHIFT [facility] Last Admin: 09/13/24 07:52 Dose: 3 ml Allergies Allergies Allergy/AdvReac Type Severity Reaction Status Date / Time No Known Allergies Allergy Verified 09/12/24 05:34 Assessment & Plan Assessment & Plan (1) Alcohol use disorder, severe, dependence: Status: Acute Code(s): F10.20 - Alcohol dependence, uncomplicated (2) 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 Knight is a 74 Total time managing care of this patient today __45__ minutes.
--- NOTE | 2024-09-13 12:54 | P.PNIM_ITS ---
Subjective Subjective Date of Service: 09/13/24 Interval History: alcohol withdrawals Review of Systems patient is upset -says has 2 seizure last night-d/w staff no seizure reported overnight we have given phenobarbital this morning now saying he wants diazepam which was given po and iv diazepam on request -he was comfortable and thanked me ,then few minutes later staff called -patient is very agitated and aggressive,insisiting for more medications . 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 in addition patient was aggressive towards staff also ,security called also. we politely requested to help him-but keep shifting from one thought to another as well as keep insisting for iv medications even though no seizure noted ,has only mild tremers ,asking for haloperidol now instead of diazepam. in addition checked with night staff-no seizure overnight. Physical Exam 2 Vital Signs: Vital Signs: Last Vital Signs Temp 97.9 F 09/13/24 11:44 Pulse 74 09/13/24 11:44 Resp 16 09/13/24 07:23 BP 149/92 H 09/13/24 11:44 Pulse Ox 98 09/13/24 11:44 O2 Del Method Room Air 09/13/24 11:44 BMI result Body Mass Index 19.4 Appearance: awake, has flight of ideas cvs: rrr, [id number]. res: clear to auscultation ,no rhonchii or wheezing abd: no rebound or guarding ,nt, bs present. ext pulses present , no cyanosis. neuro: moves all ext psych; agitated , has flight of ideas Objective Data Active Medications Acetaminophen (Acetaminophen 325 Mg Tablet) 650 mg PO Q6H PRN PRN Reason: Pain, Mild 1-3,fever,headache Last Admin: 09/13/24 07:54 Dose: 650 mg Documented By: JOE Calcium Carbonate (Calcium Carbonate 750 Mg Tab.Chew) 750 mg PO Q4H PRN PRN Reason: Heartburn Dextrose (Dextrose 50 % 25 Gm/50 Ml Syringe) 25 gm IVPUSH Q15M PRN; Protocol PRN Reason: per Hypoglycemia Standing Ord. Enoxaparin Sodium (Enoxaparin Sodium 40 Mg/0.4 Ml Syringe) 40 mg SUBCUT Q24H [facility] Last Admin: 09/13/24 11:57 Dose: 40 mg Documented By: JOE Glucose (Glucose Gel 15 Gm Gel..Gram.) 15 gm PO Q15M PRN; Protocol PRN Reason: per Hypoglycemia Standing Ord. Haloperidol Lactate (Haloperidol Lactate 5 Mg/Ml Vial) 1 mg IM Q4H PRN PRN Reason: agitation Dextrose (D5w) 1,000 mls @ 75 mls/hr IVCONT .[id number] [facility] Last Admin: 09/13/24 07:52 Dose: 75 mls/hr Documented By: JOE Insulin Glargine (Insulin Glargine,Hum.Rec.Anlog 100 Unit/Ml 10 Ml Vial) 8 unit SUBCUT DAILY [facility] Last Admin: 09/13/24 07:50 Dose: 8 unit Documented By: JOE Insulin Human Lispro (Insulin Lispro 100 Unit/Ml 3 Ml Vial) 0 unit SUBCUT QIDACHS [facility]; Protocol Last Admin: 09/13/24 11:57 Dose: 4 unit Documented By: JOE Magnesium Hydroxide (Milk Of Magnesia 30 Ml Oral.Susp) 30 ml PO DAILY PRN PRN Reason: Constipation Melatonin (Melatonin 3 Mg Tablet) 6 mg PO BEDTIME PRN PRN Reason: Insomnia Last Admin: 09/12/24 20:17 Dose: 6 mg Documented By: BELKIS Nicotine (Nicotine 21 Mg Patch.Td24) 21 mg TRANSDERMA DAILY [facility] Last Admin: 09/13/24 07:51 Dose: 21 mg Documented By: JOE Pantoprazole Sodium (Pantoprazole Sodium 40 Mg/10 Ml Vial) 40 mg IVPUSH DAILY@0630 [facility] Last Admin: 09/13/24 05:31 Dose: 40 mg Documented By: BELKIS Pharmacy Consult (Consult Rx Etoh Phenob Im/Po) 1 each MISCELLANE ONCE PRN; Protocol PRN Reason: Consult order Phenobarbital (Phenobarbital 15 Mg Tablet) 45 mg PO BID [facility]; Protocol Stop: 09/14/24 09:01 Last Admin: 09/13/24 07:51 Dose: 45 mg Documented By: HO.ARTING Phenobarbital (Phenobarbital 30 Mg Tablet) 30 mg PO BID [facility]; Protocol Stop: 09/16/24 09:01 Phenobarbital (Phenobarbital 30 Mg Tablet) 30 mg PO DAILY [facility]; Protocol Stop: 09/18/24 09:01 Sodium Chloride (0.9 % Sodium Chloride Flush 3 Ml Syringe) [facility] Last Admin: 09/13/24 07:52 Dose: 3 ml Documented By: JOE Labs 09/12/24 06:47 09/13/24 14:28 Labs: Laboratory Results - last 24 hr 09/12/24 09/12/24 09/12/24 14:00 14:11 16:48 Hold Purple Top Anion Gap 13 Estim Creat Clear Calc 67.9 Estimated GFR > 60 POC Glucose 149 H Random Glucose 200 H Calcium 8.5 D Magnesium Random Cortisol Urine Color Yellow Urine Appearance Clear Urine pH 6.5 Ur Specific [place] <= 1.005 Urine Protein Negative Urine Glucose (UA) Negative Urine Ketones Negative Urine Blood Negative Urine Nitrite Positive H Ur Leukocyte Esterase Trace H Urine RBC 0-2 Urine WBC 0-5 Ur Squamous Epith Cells 0-2 Urine Bacteria 3+ Hyaline Casts 0-2 Urine Osmolality 97 L Ur Random Sodium < 20.0 Ur Random Potassium 13.0 Ur Random Chloride < 20.0 09/12/24 09/12/24 09/13/24 18:19 19:49 06:54 Hold Purple Top SEE NOTE Anion Gap 12 Estim Creat Clear Calc 68.9 Estimated GFR > 60 POC Glucose 295 H 218 H Random Glucose 136 H Calcium 8.4 Magnesium 2.2 Random Cortisol 17.3 Urine Color Urine Appearance Urine pH Ur Specific [place] Urine Protein Urine Glucose (UA) Urine Ketones Urine Blood Urine Nitrite Ur Leukocyte Esterase Urine RBC Urine WBC Ur Squamous Epith Cells Urine Bacteria Hyaline Casts Urine Osmolality Ur Random Sodium Ur Random Potassium Ur Random Chloride 09/13/24 09/13/24 07:39 11:46 Hold Purple Top Anion Gap Estim Creat Clear Calc Estimated GFR POC Glucose 137 H 230 H Random Glucose Calcium Magnesium Random Cortisol Urine Color Urine Appearance Urine pH Ur Specific [place] Urine Protein Urine Glucose (UA) Urine Ketones Urine Blood Urine Nitrite Ur Leukocyte Esterase Urine RBC Urine WBC Ur Squamous Epith Cells Urine Bacteria Hyaline Casts Urine Osmolality Ur Random Sodium Ur Random Potassium Ur Random Chloride Microbiology Microbiology Results: Microbiology 09/12/24 Unknown Urine Culture - Preliminary Urine clean catch - Clean Catch Midstream Culture in progress. Assessment and Plan (1) Alcohol withdrawal: Status: Acute Plan 74-year-old male with a PMH significant for?HTN, HLD, insulin-dependent type 2 diabetes, ascending aortic aneurysm, Lyme arthritis, alcohol use disorder with hx of alcohol withdrawal with multiple hospitalizations, active smoker with 65 pack year hx who presents to the ED seeking alcohol detox. Alcohol withdrawals started on pheno given extra diazepam no seizures on eval or any overnight . last ciwa was 3 insist he is having seizure this morning-but no clear seizure only mild tremers as per staff-no overnight seizure also plan: continue phenobarbital , diazepam changed to haloperidol (patient inssist) neurochecks ,neuro,additction eval possible severe anxiety vs mood dis: conitnue above,added psych Hyponatremia: imrpoving Check urine sodium 97,serum osmolality: 283, and electrolytes serum sodium<20 tsh and cortisol normal improving goal is 6-8 meq/24hr next bmp will be this evening, will add nephrology eval HTN bp flactuating Monitor BP, consider adding antihypertensive if necessary HLD will check lipid levels in am ,may need statin Insulin-dependent type 2 diabetes Check A1c;6.1 unclear how compliant pt is with home meds Sliding-scale insulin, diabetic diet Ascending aortic aneurysm Pt reports is small and stable Follow up outpatient Nicotine dependence Nicotine patch, asked for nicotein gum which is added . ongoing need : alcohol withdrawals and ?mood dis: need ciwa moniter ,moniter renal function/electrolytes Quality Stroke Does the patient have a stroke diagnosis?: No VTE Prior VTE?: No VTE Risk Level:: Medical - moderate - high VTE Device Contraindication: Treatment Not Indicated VTE Drug Contraindication: N/A - Med Ordered
--- NOTE | 2024-09-13 13:05 | PC.NURSE ---
Dr asked this charge entry to talk to patient this morning as pt seems upset with care. I went into the room to talk with patient. Patient states he is not getting cared for adequately and the nurses are being so slow as the Dr told him he could get his meds immediately when I ask for them. I attempted to discuss plan of care with patient and that I would look into the Dr orders, pt very upset stating hes sick of people saying that and ignoring him. Discussed with primary RN who states he had been yelling at her this morning getting very frustrated with staff stating hes having seizures. I asked him to explain why he thought he was having seizures and what happened. 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 I discussed the possibility of this being anxiety or a panic attack. pt first agreed may be issue but then called them again seizures we are ignoring. I looked at pt MAY and pt had prn Valium 5mg ordered. Came back to the room, pt stated I was too slow, as attempting to have discussion on process of waiting for an order, waiting for verification that it is not always immediate. Pt very agitated stating he will be sueing us all, wants our names, will be hearing from a team of his laywers etc. As I was opening flushes for med administration pt stating I was playing around and continued to yell at this RN. I did not feel comfortable with his level of agitation so called security to room. This RN and security to room to discuss with patient. Valium then admined IV per MAY. Pt still upset stating this RN was incompetent and slow. and how the unit is terribly run. I offered community health representative to come to room after his meeting, patient upset rolling eyes. Security and RN able to deescalate patient after about 15min of discussing the same complaints talkign in circles pt unacceptance of any resolution (wanting haldol and more meds on demand ,nurses being faster) Told pt I would check in with the DR about plan. Plan unchanged. Per MD neuro and psych consults placed. Security and community health representative to room if needed again.
--- NOTE | 2024-09-13 13:25 | HO.ADDICTCON ---
History of Present Illness Date of Service: 09/13/2024 Chief Complaint: Alcohol withdrawal Reason for Consult: AUD Sources of Information: chart reviewed HPI Narrative: Patient is a 74 year old male who presented to [facility] [place] requesting assistance with alcohol withdrawal. While in ED, CIWA score was noted to be 16 and Na 123, subsequently patient was medically admitted. Patient was initiated on phenobarbital protocol. This morning CIWA scores 5. No reports of n/v slight tremor reported. PRN doses of diazepam had been ordered due to increasing agitation -patient reportedly upset as he felt he had a seizure and it was not being addressed There is no clinical evidence to support this. T/W observed patient verbalizing displeasure with the care he was being given here and feeling things were taking too long. Patient seen later in the afternoon in room 453. He is awake, alert, writing in a notebook when t/w arrived in his room. 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 Did not inquire any further regarding this statement. Patient answering questions, but requiring encouragement to actually answer the question as he was insistent on providing history and context, which goes back many, many years. He reports having his first drink at 9 years old with his father. He states he has had a problematic relationship with alcohol for many years, however dose report long periods of abstaining --4 years being the longest. He states that he was living in [place] when his him and he suffered a stroke. This led to him moving to [place] with one of his children, until 2 months ago when he came to [place] and has been living in a [address]. The timeline of the stroke, divorce, etc. is unclear. He states he started drinking 2 months ago in the motel and finally decided he needed to stop so he presented to ED Discussed treatment history States he has been to various levels of care multiple time Has trialled all medications for AUD, and states all were ineffective Has been engaged with AA Currently withdrawal sx well managed, still has mild visible tremor Patient agreeable that withdrawal sx are well managed--however he quickly states that he experienced 2 seizures last evening Medical Evaluation Reviewed: Yes Review of Systems Constitutional: Reports as per HPI Diagnostics Vital Signs (24Hr): Vital Signs - 24 hr 09/12/24 14:04 09/12/24 18:32 09/12/24 19:40 Temperature 97.3 F 97.8 F Pulse Rate 64 71 71 Respiratory Rate 13 13 16 Blood Pressure 148/80 H 144/75 H 134/72 Pulse Oximetry 97 98 92 Oxygen Delivery Method Room Air Room Air Room Air 09/12/24 23:49 09/13/24 03:52 09/13/24 07:23 Temperature 97.1 F 97.6 F 97.4 F Pulse Rate 63 51 59 Respiratory Rate 18 18 16 Blood Pressure 122/69 145/74 H 158/77 H Pulse Oximetry 99 99 100 Oxygen Delivery Method Room Air Room Air Room Air 09/13/24 11:44 Temperature 97.9 F Pulse Rate 74 Respiratory Rate Blood Pressure 149/92 H Pulse Oximetry 98 Oxygen Delivery Method Room Air BMI result Body Mass Index 19.4 Labs 09/12/24 06:47 09/13/24 14:28 Labs: Laboratory Results - last 48 hr 09/12/24 09/12/24 09/12/24 06:47 11:14 11:17 WBC 11.0 H RBC 4.49 L Hgb 14.7 Hct 40.1 L MCV 89.3 MCH 32.7 MCHC 36.7 H RDW 13.4 Plt Count 223 MPV 8.9 L Immature Gran % (Auto) 0.5 H Neut % (Auto) 73.2 H Lymph % (Auto) 18.8 L [place] % (Auto) 7.0 Eos % (Auto) 0.3 Baso % (Auto) 0.2 Lymph # (Auto) 2.1 [place] # (Auto) 0.8 Eos # (Auto) 0.0 Baso # (Auto) 0.0 Abs Immat Gran (auto) 0.05 H Absolute Neuts (auto) 8.0 Absolute Nucleated RBC 0.000 Nucleated RBC % (auto) 0.0 Hold Purple Top Sodium 123 L 129 L Potassium 4.1 4.7 Chloride 88 L 93 L Carbon Dioxide 24 26 Anion Gap 15 15 BUN 14 16 Creatinine 0.82 0.81 Estim Creat Clear Calc 73.7 74.6 Estimated GFR > 60 > 60 POC Glucose Random Glucose 148 H 157 H Osmolality 283 Calcium 9.1 9.2 Magnesium 2.0 Total Bilirubin 0.8 AST 20 ALT 8 Alkaline Phosphatase 107 Total Protein 7.7 Albumin 3.9 TSH 1.44 Random Cortisol Urine Color Urine Appearance Urine pH Ur Specific [place] Urine Protein Urine Glucose (UA) Urine Ketones Urine Blood Urine Nitrite Ur Leukocyte Esterase Urine RBC Urine WBC Ur Squamous Epith Cells Urine Bacteria Hyaline Casts Urine Osmolality Ur Random Sodium Ur Random Potassium Ur Random Chloride Ethyl Alcohol 11 09/12/24 09/12/24 09/12/24 14:00 14:11 16:48 WBC RBC Hgb Hct MCV MCH MCHC RDW Plt Count MPV Immature Gran % (Auto) Neut % (Auto) Lymph % (Auto) [place] % (Auto) Eos % (Auto) Baso % (Auto) Lymph # (Auto) [place] # (Auto) Eos # (Auto) Baso # (Auto) Abs Immat Gran (auto) Absolute Neuts (auto) Absolute Nucleated RBC Nucleated RBC % (auto) Hold Purple Top Sodium 131 L Potassium 4.1 Chloride 98 Carbon Dioxide 24 Anion Gap 13 BUN 16 Creatinine 0.89 Estim Creat Clear Calc 67.9 Estimated GFR > 60 POC Glucose 149 H Random Glucose 200 H Osmolality Calcium 8.5 D Magnesium Total Bilirubin AST ALT Alkaline Phosphatase Total Protein Albumin TSH Random Cortisol Urine Color Yellow Urine Appearance Clear Urine pH 6.5 Ur Specific [place] <= 1.005 Urine Protein Negative Urine Glucose (UA) Negative Urine Ketones Negative Urine Blood Negative Urine Nitrite Positive H Ur Leukocyte Esterase Trace H Urine RBC 0-2 Urine WBC 0-5 Ur Squamous Epith Cells 0-2 Urine Bacteria 3+ Hyaline Casts 0-2 Urine Osmolality 97 L Ur Random Sodium < 20.0 Ur Random Potassium 13.0 Ur Random Chloride < 20.0 Ethyl Alcohol 09/12/24 09/12/24 09/13/24 18:19 19:49 06:54 WBC RBC Hgb Hct MCV MCH MCHC RDW Plt Count MPV Immature Gran % (Auto) Neut % (Auto) Lymph % (Auto) [place] % (Auto) Eos % (Auto) Baso % (Auto) Lymph # (Auto) [place] # (Auto) Eos # (Auto) Baso # (Auto) Abs Immat Gran (auto) Absolute Neuts (auto) Absolute Nucleated RBC Nucleated RBC % (auto) Hold Purple Top SEE NOTE Sodium 133 L Potassium 4.1 Chloride 98 Carbon Dioxide 27 Anion Gap 12 BUN 23 H Creatinine 0.90 Estim Creat Clear Calc 68.9 Estimated GFR > 60 POC Glucose 295 H 218 H Random Glucose 136 H Osmolality Calcium 8.4 Magnesium 2.2 Total Bilirubin AST ALT Alkaline Phosphatase Total Protein Albumin TSH Random Cortisol 17.3 Urine Color Urine Appearance Urine pH Ur Specific [place] Urine Protein Urine Glucose (UA) Urine Ketones Urine Blood Urine Nitrite Ur Leukocyte Esterase Urine RBC Urine WBC Ur Squamous Epith Cells Urine Bacteria Hyaline Casts Urine Osmolality Ur Random Sodium Ur Random Potassium Ur Random Chloride Ethyl Alcohol 09/13/24 09/13/24 07:39 11:46 WBC RBC Hgb Hct MCV MCH MCHC RDW Plt Count MPV Immature Gran % (Auto) Neut % (Auto) Lymph % (Auto) [place] % (Auto) Eos % (Auto) Baso % (Auto) Lymph # (Auto) [place] # (Auto) Eos # (Auto) Baso # (Auto) Abs Immat Gran (auto) Absolute Neuts (auto) Absolute Nucleated RBC Nucleated RBC % (auto) Hold Purple Top Sodium Potassium Chloride Carbon Dioxide Anion Gap BUN Creatinine Estim Creat Clear Calc Estimated GFR POC Glucose 137 H 230 H Random Glucose Osmolality Calcium Magnesium Total Bilirubin AST ALT Alkaline Phosphatase Total Protein Albumin TSH Random Cortisol Urine Color Urine Appearance Urine pH Ur Specific [place] Urine Protein Urine Glucose (UA) Urine Ketones Urine Blood Urine Nitrite Ur Leukocyte Esterase Urine RBC Urine WBC Ur Squamous Epith Cells Urine Bacteria Hyaline Casts Urine Osmolality Ur Random Sodium Ur Random Potassium Ur Random Chloride Ethyl Alcohol Mental Status Exam Mental Status Exam Level of Consciousness: Awake and Alert Patient Behavior: Talkative Affect Description: Expansive Speech Pattern: Clear and Excessive Hallucinations: None Thought Content: positive for Tangential Judgement: Fair Medications Medications Current Medications Acetaminophen (Acetaminophen 325 Mg Tablet) 650 mg PO Q6H PRN PRN Reason: Pain, Mild 1-3,fever,headache Last Admin: 09/13/24 07:54 Dose: 650 mg Calcium Carbonate (Calcium Carbonate 750 Mg Tab.Chew) 750 mg PO Q4H PRN PRN Reason: Heartburn Dextrose (Dextrose 50 % 25 Gm/50 Ml Syringe) 25 gm IVPUSH Q15M PRN; Protocol PRN Reason: per Hypoglycemia Standing Ord. Enoxaparin Sodium (Enoxaparin Sodium 40 Mg/0.4 Ml Syringe) 40 mg SUBCUT Q24H [place] Last Admin: 09/13/24 11:57 Dose: 40 mg Gabapentin (Gabapentin 300 Mg Capsule) 300 mg PO TID [place] Glucose (Glucose Gel 15 Gm Gel..Gram.) 15 gm PO Q15M PRN; Protocol PRN Reason: per Hypoglycemia Standing Ord. Haloperidol Lactate (Haloperidol Lactate 5 Mg/Ml Vial) 1 mg IM Q4H PRN PRN Reason: agitation Dextrose (D5w) 1,000 mls @ 75 mls/hr IVCONT .[id number] [facility] Last Admin: 09/13/24 07:52 Dose: 75 mls/hr Insulin Glargine (Insulin Glargine,Hum.Rec.Anlog 100 Unit/Ml 10 Ml Vial) 8 unit SUBCUT DAILY [facility] Last Admin: 09/13/24 07:50 Dose: 8 unit Insulin Human Lispro (Insulin Lispro 100 Unit/Ml 3 Ml Vial) 0 unit SUBCUT QIDACHS [facility]; Protocol Last Admin: 09/13/24 11:57 Dose: 4 unit Magnesium Hydroxide (Milk Of Magnesia 30 Ml Oral.Susp) 30 ml PO DAILY PRN PRN Reason: Constipation Melatonin (Melatonin 3 Mg Tablet) 6 mg PO BEDTIME PRN PRN Reason: Insomnia Last Admin: 09/12/24 20:17 Dose: 6 mg Nicotine (Nicotine 21 Mg Patch.Td24) 21 mg TRANSDERMA DAILY [facility] Last Admin: 09/13/24 07:51 Dose: 21 mg Pantoprazole Sodium (Pantoprazole Sodium 40 Mg/10 Ml Vial) 40 mg IVPUSH DAILY@0630 [facility] Last Admin: 09/13/24 05:31 Dose: 40 mg Pharmacy Consult (Consult Rx Etoh Phenob Im/Po) 1 each MISCELLANE ONCE PRN; Protocol PRN Reason: Consult order Phenobarbital (Phenobarbital 15 Mg Tablet) 45 mg PO BID [facility]; Protocol Stop: 09/14/24 09:01 Last Admin: 09/13/24 07:51 Dose: 45 mg Phenobarbital (Phenobarbital 30 Mg Tablet) 30 mg PO BID [facility]; Protocol Stop: 09/16/24 09:01 Phenobarbital (Phenobarbital 30 Mg Tablet) 30 mg PO DAILY [facility]; Protocol Stop: 09/18/24 09:01 Sodium Chloride (0.9 % Sodium Chloride Flush 3 Ml Syringe) 3 ml IVFLUSH QSHIFT [facility] Last Admin: 09/13/24 07:52 Dose: 3 ml Allergies Allergies Allergy/AdvReac Type Severity Reaction Status Date / Time No Known Allergies Allergy Verified 09/12/24 05:34 Assessment & Plan Assessment & Plan (1) Alcohol withdrawal: Status: Acute Code(s): F10.939 - Alcohol use, unspecified with withdrawal, unspecified Assessment and Plan: continue phenobarbatal protocol please avoid PRN benzodiazepines in combination with phenobarbital if needed PRN gabapentin for reported anxiety or haldol for escalating behaviors that can not be redirected requesting resources for this area--cristal ALCARAZ Total time managing care of this patient today _40___ minutes. 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
[2024-09-13 14:30] LABS: Hemoglobin A1C 143.4766 umol/L; Total Hemoglobin (HGBA1C) 3359.5263 umol/L
[2024-09-13 15:03] LABS: Sodium 131 mmol/L (135-145)
[2024-09-13 16:22] LABS: Glucose, Whole Blood 142 mg/dL (60-115)
[2024-09-13 19:43] LABS: Anion Gap 12 (12-20); Blood Urea Nitrogen 23 mg/dL (9-16); Calcium 8.1 mg/dL (8.4-10.2); Carbon Dioxide 25 mmol/L (22-29); Chloride 97 mmol/L (96-108); Creatinine Clr Calc Pharmacy 70.5; Estimated Glomerular Filt Rate > 60; Potassium 4.1 mmol/L (3.3-5.1); Sodium 130 mmol/L (135-145)
[2024-09-13 20:09] LABS: Glucose, Whole Blood 171 mg/dL (60-115)
--- NOTE | 2024-09-13 20:52 | PC.NURSE ---
Assumed care for patient 09/12 7p-7a. Around 8:15pm pt agitated wanting nighttime meds stating you're taking too long and I'm about to have a seizure patient actively thrashing his legs around in bed stating I'm trying to keep the seizure from coming on patient given scheduled PO phenobarbital, patient then immediately stopped thrashing his legs, he stated this medication will take an hour to kick in I'll have a seizure by then get the doctor and tell them this medication is not managing my withdrawal I need more medication, I'm refusing care until then This RN notified overnight provider of patients agitation, 1x IV Valium ordered and given with good effect, after the medication patient willing to be assessed and cooperating with care. patient noted to be sleeping overnight with no issues.
[2024-09-14 03:35] VITALS: BP 125/76; PULSE 69; RESP 16; TEMP 36.4; O2SAT 99
[2024-09-14 07:14] VITALS: BP 145/71; PULSE 63; RESP 18; TEMP 36.4; O2SAT 99
[2024-09-14 07:15] LABS: Glucose, Whole Blood 164 mg/dL (60-115)
[2024-09-14 07:33] LABS: Anion Gap 11 (12-20); Blood Urea Nitrogen 20 mg/dL (9-16); Calcium 8.4 mg/dL (8.4-10.2); Carbon Dioxide 28 mmol/L (22-29); Chloride 100 mmol/L (96-108); Creatinine Clr Calc Pharmacy 75.6; Estimated Glomerular Filt Rate > 60; Magnesium 2.1 mg/dL (1.6-2.6); Potassium 4.3 mmol/L (3.3-5.1); Sodium 135 mmol/L (135-145)
[2024-09-14] MEDS: Insulin Glargine,Hum.rec.anlog 100 UNIT/ML 10 ML VIAL 8 UNIT SUBCUT (08:09)
[2024-09-14] MEDS: Nicotine 21 MG PATCH.TD24 TRANSDERMA (08:10)
[2024-09-14] MEDS: 0.9 % Sodium Chloride Flush 3 ML SYRINGE IVFLUSH (08:17)
--- NOTE | 2024-09-14 09:16 | P.CONNP_ITS ---
History of Present Illness Reason for Consult Consult date: 09/14/24 Chief Complaint Chief complaint: Alcohol withdrawal History of Present Illness Narrative: 74 y/o male with a medical history of HTN, HLD, DMII, ascending aortic aneurysm, Lyme arthritis, alcohol use disorder with hx of alcohol withdrawal with multiple hospitalizations, active smoker with 65 pack year. 09/12 presented for alcohol detox. Nephrology consulted for hyponatremia, sodium 123 on presentation. urine osmolality 97, urine sodium <20. patient reports drinking 18 beers daily. Has been through alcohol detox many times. Reports runs in his family, reports father was alcoholic and gave him his first beer when he was 9 years old. He is hopeful he may stay sober now. He reports he feels well. He denies concerns/complaints. Review of Systems Constitutional: Reports no additional constitutional complaints Cardiovascular: Denies chest pain, Denies leg edema, Denies lightheadedness and Denies dyspnea Respiratory: Denies dyspnea Gastrointestinal: Denies abdominal pain, Denies diarrhea, Denies nausea and Denies vomiting Genitourinary: Denies hematuria, Reports oliguria, Denies dysuria and Denies flank pain Musculoskeletal: Denies back pain and Denies joint swelling Skin/Breast: Denies rash Denies paresthesias and Denies tremor(s) PMFSH Past Medical History Medical History (Updated 09/13/24 @ 12:33 by Bailey Chaves NP) 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 Alcohol use disorder Nicotine dependence Ascending aortic aneurysm HLD (hyperlipidemia) HTN (hypertension) Social History Social History Household Members: None Housing: Homeless Do you presently have visiting nurse or other home services: No Alcohol intake: current Alcohol intake frequency: 3 or more drinks per day Alcohol type: beer Patient Tobacco Use Status: Current someday Tobacco user Tobacco use type: Cigarette Cigarette Packs Per Day: 1.5 Cigarettes Per Day: 30.0 Substance Use Type: Marijuana service: No Meds Allergies Allergy/AdvReac Type Severity Reaction Status Date / Time No Known Allergies Allergy Verified 09/12/24 05:34 Active Medications: Current Medications Acetaminophen (Acetaminophen 325 Mg Tablet) 650 mg PO Q6H PRN PRN Reason: Pain, Mild 1-3,fever,headache Last Admin: 09/13/24 16:52 Dose: 650 mg Calcium Carbonate (Calcium Carbonate 750 Mg Tab.Chew) 750 mg PO Q4H PRN PRN Reason: Heartburn Dextrose (Dextrose 50 % 25 Gm/50 Ml Syringe) 25 gm IVPUSH Q15M PRN; Protocol PRN Reason: per Hypoglycemia Standing Ord. Enoxaparin Sodium (Enoxaparin Sodium 40 Mg/0.4 Ml Syringe) 40 mg SUBCUT Q24H [facility] Last Admin: 09/13/24 11:57 Dose: 40 mg Gabapentin (Gabapentin 300 Mg Capsule) 300 mg PO TID [facility] Last Admin: 09/14/24 08:09 Dose: 300 mg Glucose (Glucose Gel 15 Gm Gel..Gram.) 15 gm PO Q15M PRN; Protocol PRN Reason: per Hypoglycemia Standing Ord. Haloperidol Lactate (Haloperidol Lactate 5 Mg/Ml Vial) 1 mg IM Q4H PRN PRN Reason: agitation Last Admin: 09/13/24 23:59 Dose: 1 mg Insulin Glargine (Insulin Glargine,Hum.Rec.Anlog 100 Unit/Ml 10 Ml Vial) 8 unit SUBCUT DAILY [facility] Last Admin: 09/14/24 08:09 Dose: 8 unit Insulin Human Lispro (Insulin Lispro 100 Unit/Ml 3 Ml Vial) 0 unit SUBCUT QIDACHS [facility]; Protocol Last Admin: 09/14/24 08:08 Dose: 2 unit Magnesium Hydroxide (Milk Of Magnesia 30 Ml Oral.Susp) 30 ml PO DAILY PRN PRN Reason: Constipation Melatonin (Melatonin 3 Mg Tablet) 6 mg PO BEDTIME PRN PRN Reason: Insomnia Last Admin: 09/12/24 20:17 Dose: 6 mg Nicotine (Nicotine 21 Mg Patch.Td24) 21 mg TRANSDERMA DAILY [facility] Last Admin: 09/14/24 08:10 Dose: 21 mg Nicotine Polacrilex (Nicotine Polacrilex 2 Mg Gum) 2 mg BUCCAL Q2H PRN PRN Reason: Nicotine Cravings Last Admin: 09/13/24 22:22 Dose: 2 mg Pantoprazole Sodium (Pantoprazole Sodium 40 Mg/10 Ml Vial) 40 mg IVPUSH DAILY@629 [facility] Last Admin: 09/14/24 06:17 Dose: 40 mg Pharmacy Consult (Consult Rx Etoh Phenob Im/Po) 1 each MISCELLANE ONCE PRN; Protocol PRN Reason: Consult order Phenobarbital (Phenobarbital 30 Mg Tablet) 30 mg PO BID [facility]; Protocol Stop: 09/16/24 09:01 Phenobarbital (Phenobarbital 30 Mg Tablet) 30 mg PO DAILY [facility]; Protocol Stop: 09/18/24 09:01 Sodium Chloride (0.9 % Sodium Chloride Flush 3 Ml Syringe) 3 ml IVFLUSH QSHIFT [facility] Last Admin: 09/14/24 08:17 Dose: 3 ml Home Medications ?Medication ?Instructions ?Recorded ?Confirmed ?Last Taken ?Type insulin glargine-yfgn 100 unit/mL 10 unit subcut DAILY 09/12/24 09/12/24 3 Days Ago History subcutaneous solution ~09/09/24 insulin lispro 100 unit/mL 1 sliding scale dose subcut TIDAC 09/12/24 09/12/24 3 Days Ago History subcutaneous pen ~09/09/24 Physical Exam Vital Signs: Last Vital Signs Temp 97.5 F 09/14/24 07:14 Pulse 63 09/14/24 07:14 Resp 18 09/14/24 07:14 BP 145/71 H 09/14/24 07:14 Pulse Ox 99 09/14/24 07:14 O2 Del Method Room Air 09/14/24 07:14 BMI result Body Mass Index 19.4 Const General: no acute distress, alert and awake Resp Effort & Inspection: normal respiratory effort and able to speak in complete sentences Auscultation: clear to auscultation bilaterally Cardio Rate: regular rate Rhythm: regular rhythm Heart sounds: S1 normal heart sound present and S2 normal heart sound present GI Palpation (GI): Soft to palpation and nontender General: Yes no CVA tenderness Back/Spine/Pelvis Back: no CVA tenderness Skin Rashes: no rashes Extrem General: No edema Results Lab Results 09/12/24 06:47 09/14/24 06:51 Lab results: Chemistry 09/12/24 09/12/24 09/12/24 06:47 11:17 16:48 Sodium 123 L 129 L 131 L Potassium 4.1 4.7 4.1 Carbon Dioxide 24 26 24 BUN 14 16 16 Creatinine 0.82 0.81 0.89 Calcium 9.1 9.2 8.5 D 09/13/24 09/13/24 09/13/24 06:54 14:28 19:14 Sodium 133 L 131 L 130 L Potassium 4.1 4.1 Carbon Dioxide 27 25 BUN 23 H 23 H Creatinine 0.90 0.88 Calcium 8.4 8.1 L 09/14/24 06:51 Sodium 135 Potassium 4.3 Carbon Dioxide 28 BUN 20 H Creatinine 0.82 Calcium 8.4 Hematology 09/12/24 06:47 WBC 11.0 H Hgb 14.7 Plt Count 223 Urinalysis 09/12/24 14:00 Urine Color Yellow Urine Appearance Clear Urine pH 6.5 Ur Specific [place] <= 1.005 Urine Protein Negative Urine Glucose (UA) Negative Urine Ketones Negative Urine Blood Negative Urine Nitrite Positive H Ur Leukocyte Esterase Trace H Urine RBC 0-2 Urine WBC 0-5 Ur Squamous Epith Cells 0-2 Hyaline Casts 0-2 Urine Studies 09/12/24 14:00 Urine Osmolality 97 L Assessment and Plan (1) Acute hyponatremia: Status: Acute Plan Hyponatremia secondary to beer potomania improving- initial correction on 09/12 fast, however, has been at recommended rate over previous 48 hours. recommend discontinuing fluid restriction, may encourage oral hydration no indication for salt tablets, urea powder or other medication intervention at this time. Agree with addiction medicine consult. Discussed with Dr Alatorre. Procedures Date of Service Date of Service: 09/14/24
[2024-09-14 11:22] LABS: Glucose, Whole Blood 186 mg/dL (60-115)
[2024-09-14 11:41] VITALS: BP 127/76; PULSE 68; RESP 18; TEMP 36.7; O2SAT 99
--- NOTE | 2024-09-14 13:41 | P.DS_ITS ---
DS: Providers Provider Date of Service: 09/14/24 Date of admission: 09/12/24 10:25 Date of discharge: 09/14/24 Primary care physician: Unknown Physician Consults: 09/12/24 10:48 Addiction Medicine Provider Routine Consulting Provider: [facility] Reason for consultation: Alcohol withdrawals Has provider been notified: No 09/13/24 09:56 Consult to Neurology Routine Consulting Provider: [facility] Reason for consultation: Alcohol withdrawal Has provider been notified: No 09/13/24 10:00 Consult to Psychiatry Routine Consulting Provider: [facility] Reason for consultation: Anxiety's 09/13/24 10:48 Consult to Psychiatry Stat Consulting Provider: [facility] Psych [facility] Reason for consultation: mood dis /agitated Has provider been notified: Yes 09/13/24 17:00 Consult to Nephrology Routine Consulting Provider: [facility] Reason for consultation: hyponatremia Has provider been notified: No DS: Diagnosis Discharge Diagnosis (1) Acute hyponatremia: Status: Acute DS: Summary Hospital Course Hospital Course: from initial hpi: 74-year-old male with a PMH significant for?HTN, HLD, insulin-dependent type 2 diabetes, ascending aortic aneurysm, Lyme arthritis, alcohol use disorder with hx of alcohol withdrawal with multiple hospitalizations, active smoker with 65 pack year hx who presents to the ED seeking alcohol detox. Pt reports due to life stressors has been drinking alcohol for the past 3 months after a period. Initially started with just a few beers a day, but recently has been bingeing around 18 beers daily. The past 3 4 days has been trying to cut back, though been experiencing symptoms of withdrawal including increased agitation, shakiness, and muscle spasms. Reports long hx of heavy alcohol use and has been hospitalized for alcohol withdrawal in the past in both [place] and in [facility] among other places. Pt used to drink hard alcohol, though lately switched to beer due to alcoholic gastritis. Currently denies headache, nausea, vomiting, or increased anxiety. No reported auditory or visual hallucinations, no tactile disturbances. Reports GERD like symptoms, though no significant abdominal pain. Denies chest pain/pressure, palpitations. No SOB or difficulty breathing. Pt is an active smoker of a pack daily. In the ED pt was hypertensive up to 161/89, vitals otherwise stable and WNL. Labs were significant for mild leukocytosis of 11.0, sodium 123, chloride 88. Ethyl alcohol 11. H&H stable. Renal function WNL. Mag WNL. Hepatic function WNL. Pt was treated in the ED with IVF, Protonix, ondansetron, diazepam 5 mg IV, and started on phenobarb protocol. Pt is admitted to the hospital for treatment and further evaluation of acute alcohol withdrawal with hyponatremia. hospital course: Patient was admitted for alcohol dependence with withdrawal. Was treated with phenobarbital and diazepam. Eventually symptoms resolved. He is feeling much better was seen by Addiction team who provided recommendations. Course also complicated by acute hyponatremia which resolved. For diabetes was continued on insulin sliding scale. Noted to have urinary tract infection with bacteriuria and pyuria with Gram-negative rods on Gram stain, empirically started on Ceftin, culture should be followed up as outpatient if antibiotics need to be adjusted. For ascending aortic aneurysm follows outpatient. Time Attestation Discharge Coordination Time (in mins): 34 Quality: Safe Use of Opioids Does Pt have an Active Cancer Diagnosis on the Problem List?: No Quality: Stroke Does the patient have a stroke diagnosis?: No Physical Exam Vital Signs: Vital Signs: Last Vital Signs Temp 98.1 F 09/14/24 11:41 Pulse 68 09/14/24 11:41 Resp 18 09/14/24 11:41 BP 127/76 09/14/24 11:41 Pulse Ox 99 09/14/24 11:41 O2 Del Method Room Air 09/14/24 11:41 BMI result Body Mass Index 19.4 General: AO X 3, no acute distress Resp: CTA bilateral, no accessory muscles used CVS: S1,S2,RRR GI: soft, non tender, non distended Neuro: motor grossly intact, alert Psych: appropriate affect, appropriate insight DS: Data Data Completed and Pending Labs on day of discharge: Laboratory Results - last 24 hr 09/13/24 09/13/24 09/13/24 06:54 14:28 16:12 Hold Purple Top Sodium 131 L Potassium Chloride Carbon Dioxide Anion Gap BUN Creatinine Estim Creat Clear Calc Estimated GFR POC Glucose 142 H Random Glucose Estimat Average Glucose 128 Hemoglobin A1c % 6.1 H Calcium Magnesium 09/13/24 09/13/24 09/14/24 19:14 20:02 06:51 Hold Purple Top SEE NOTE Sodium 130 L 135 Potassium 4.1 4.3 Chloride 97 100 Carbon Dioxide 25 28 Anion Gap 12 11 L BUN 23 H 20 H Creatinine 0.88 0.82 Estim Creat Clear Calc 70.5 75.6 Estimated GFR > 60 > 60 POC Glucose 171 H Random Glucose 189 H 151 H Estimat Average Glucose Hemoglobin A1c % Calcium 8.1 L 8.4 Magnesium 2.1 09/14/24 09/14/24 07:10 11:16 Hold Purple Top Sodium Potassium Chloride Carbon Dioxide Anion Gap BUN Creatinine Estim Creat Clear Calc Estimated GFR POC Glucose 164 H 186 H Random Glucose Estimat Average Glucose Hemoglobin A1c % Calcium Magnesium Preliminary micro results at discharge 09/12/24 Unknown Urine Culture - Preliminary Urine clean catch - Clean Catch Midstream Gram negative evelyn Discharge Plan Discharge Anticipated Discharge Date/Time: 09/14/24 13:34 Patient Disposition: Home, Self-Care Discharge Diagnosis: etoh dependence Referrals: PhysicianNghia [Primary Care Provider, Medical] - 1 Week Discharge Medications: New cefuroxime axetil 500 mg Tablet 500 mg PO Q12H Qty: 10 0RF Continued insulin lispro 100 unit/mL Insulin Pen 1 sliding scale dose SUBCUT TIDAC Protocol: Insulin Correction Scale Less than or equal to 110 ---- Give (units): 0 111 to 150 Give (units): 0 151 to 200 Give (units): 2 201 to 250 Give (units): 4 251 to 300 Give (units): 6 301 to 350 Give (units): 8 Greater than 350 Give (units): 10 Call MD if Blood Glucose > : 350 insulin glargine-yfgn 100 unit/mL Solution 10 unit SUBCUT DAILY Discharge Orders: Discharge Order (Routine); Ordered 09/14/24 Ordered By: Marin Sesay Diet: Advance to usual diet Activity on Discharge: As tolerated Stand Alone Forms: Patient Portal Discharge page Print Language: Slovak Care Plan Goals: recovery Health Concerns: etoh Plan of Treatment: 5 days ceftin, avoid etoh Assessment: see above
[2024-09-14 15:09] VITALS: BP 132/68; PULSE 63; RESP 18; TEMP 36.4; O2SAT 98
== END 2024-09-14 17:12 | disposition home or self-care (01) | DRG 897 ==
LOC: HO.ED 10:24 → HO.EDOVER 10:26 → HO.IMC 17:14
PROVIDERS: Internal Medicine; Student in an Organized Health Care Education/Training Program; Admitting Provider Internal Medicine; Emergency Provider Emergency Medicine; Visit Provider Internal Medicine
DX: F10.239 Alcohol dependence with withdrawal, unspecified (principal); E87.1 Hypo-osmolality and hyponatremia; Z59.01 Sheltered homelessness; F17.210 Nicotine dependence, cigarettes, uncomplicated; Z71.6 Tobacco abuse counseling; F43.12 Post-traumatic stress disorder, chronic; F41.9 Anxiety disorder, unspecified; I10 Essential (primary) hypertension; E11.9 Type 2 diabetes mellitus without complications; E78.5 Hyperlipidemia, unspecified; I71.21 Aneurysm of the ascending aorta, without rupture; Z79.4 Long term (current) use of insulin; Z91.82 Personal history of military deployment
CPT/HCPCS: 36415; 80048; 80053; 80307; 81001; 82436; 82533; 82947; 83036; 83735; 83930; 83935; 84133; 84295; 84300; 84443; 85025; 87086; 87088; 87186; 99285; J1308; J1630; J1650; J2405; J2470; J2560; J3360; J7120

== ENCOUNTER → 2024-09-12 10:25 | Outpatient (BNV) | payer BC, SELFPAY | PROVIDERS: Admitting Provider Internal Medicine; Emergency Provider Emergency Medicine; Visit Provider Student in an Organized Health Care Education/Training Program | DX: F10.939 Alcohol use, unspecified with withdrawal, unspecified (principal); E87.1 Hypo-osmolality and hyponatremia | CPT/HCPCS: 99223 ==

== ENCOUNTER → 2024-09-12 10:25 | Outpatient (BNV) | payer BC, SELFPAY | PROVIDERS: Admitting Provider Internal Medicine; Emergency Provider Emergency Medicine; Visit Provider Nurse Practitioner Family | DX: E87.1 Hypo-osmolality and hyponatremia (principal) | CPT/HCPCS: 99231 ==

== ENCOUNTER → 2024-09-12 10:25 | Outpatient (BNV) | payer BC, SELFPAY | PROVIDERS: Admitting Provider Internal Medicine; Emergency Provider Emergency Medicine; Visit Provider Nurse Practitioner Psychiatric/Mental Health | DX: F10.939 Alcohol use, unspecified with withdrawal, unspecified (principal) | CPT/HCPCS: 99232 ==